=== PATIENT | male | born 2000 | race Caucasian/White ===

== ENCOUNTER 2018-05-17 08:08 | Emergency (ER) | payer MEDICAID ==
[~2018-05-17] VITALS: Ht 182.9 cm; Wt 68.2 kg
[2018-05-17 08:10] VITALS: Ht 182.9 cm; Wt 68.2 kg
[2018-05-17 09:19] LABS: BASOPHILS 0.2 % (0-2); EOSINOPHILS 0.6 % (0-7); HEMATOCRIT 35.8 % (42.0-54.0); HEMOGLOBIN 12.1 g/dL (13.5-17.5); IMMATURE GRANULOCYTES 0.3 % (0-5); LYMPHOCYTES 11.8 % (15-50); MCH 29.8 pg (26.0-34.0); MCHC 33.8 g/dL (31.0-37.0); MCV 88.2 fL (80.0-100.0); MEAN PLATELET VOLUME 10.1 fL (7.4-10.4); MONOCYTES 13.8 % (2-11); NEUTROPHILS 73.3 % (40-80); PLATELET COUNT 215 10x3/uL (130-400); RBC 4.06 10x6/uL (4.20-6.10); RDW 14.1 % (11.5-14.5); WBC 11.1 10x3/uL (4.8-10.8)
[2018-05-17 09:39] LABS: ALBUMIN 3.4 g/dL (3.4-5.0); ALKALINE PHOSPHATASE 69 U/L (46-116); ALT (SGPT) 20 U/L (10-68); CALC OSMOLALITY 281 mosm/kg (275-300); CALCIUM 8.3 mg/dL (8.5-10.1); CHLORIDE - SERUM 106 mmol/L (98-107); CREATININE - SERUM 0.8 mg/dL (0.6-1.3); GLUCOSE 85 mg/dL (74-106); MAGNESIUM - SERUM 2.2 mg/dL (1.8-2.4); POTASSIUM - SERUM 4.6 mmol/L (3.5-5.1); PROTEIN - SERUM 6.9 g/dL (6.4-8.2); SODIUM 141 mmol/L (136-145); UREA NITROGEN 18 mg/dL (7-18); eGFR NON AFRICAN AMERICAN > 90 mL/min (90-120)
[2018-05-17] MEDS ORDERED: ZYPREXA5 MG PO (10:17)
[2018-05-17] MEDS ORDERED: VALIUM5 MG PO (10:17)
[2018-05-17] MEDS ORDERED: DEPAKOTE500 MG PO (10:17)
[2018-05-17] MEDS ORDERED: BENZTROPINE MESY2 MG PO (10:18)
[2018-05-17] MEDS ORDERED: CLARITIN 10 MG10 MG PO (10:18)
[2018-05-17] MEDS ORDERED: CLOMIPRAMINE HC25 MG PO (10:19)
[2018-05-17] MEDS ORDERED: DESERYL50 M2 PO (10:20)
[2018-05-17] MEDS ORDERED: TOPAMAX200 MG PO (10:20)
[2018-05-17 11:08] LABS: UDS - AMPHET NEGATIVE QUAL (NEGATIVE); UDS - BARB NEGATIVE QUAL (NEGATIVE); UDS - BENZO POSITIVE QUAL (NEGATIVE); UDS - COCAINE NEGATIVE QUAL (NEGATIVE); UDS - OPIATE NEGATIVE QUAL (NEGATIVE); UDS - PCP NEGATIVE QUAL (NEGATIVE); UDS - THC NEGATIVE QUAL (NEGATIVE)
[2018-05-17 11:09] LABS: APPEARANCE HAZY (CLEAR); BILIRUBIN NEGATIVE (NEGATIVE); COLOR YELLOW (YELLOW); GLUCOSE NEGATIVE (NEGATIVE); KETONE NEGATIVE (NEGATIVE); NITRITE NEGATIVE (NEGATIVE); PROTEIN NEGATIVE (NEGATIVE); SPECIFIC GRAVITY 1.025 (1.005-1.020); UROBILINOGEN NORMAL (NORMAL)
[2018-05-17 13:57] VITALS: BP 116/67
== END 2018-05-17 13:57 | disposition other institution (70) ==
LOC: D.ER 08:08 → EDBD 08:08 → D.ER 13:57
PROVIDERS: Family Medicine
DX: G40.89 Other seizures (principal); R41.82 Altered mental status, unspecified